=== PATIENT | male | born 1960 | race Caucasian/White ===

== ENCOUNTER 2019-03-17 23:14 | Emergency (ER) | payer SELFPAY ==
[~2019-03-17] VITALS: Ht 170.2 cm; Wt 75.7 kg
[2019-03-17 23:21] VITALS: Ht 170.2 cm; Wt 75.7 kg
[2019-03-18 01:53] VITALS: BP 105/66
== END 2019-03-18 01:53 | disposition home or self-care (01) ==
LOC: ED 23:14
DX: S93.602A Unspecified sprain of left foot, initial encounter (principal); X58.XXXA Exposure to other specified factors, initial encounter; Y93.67 Activity, basketball; Y92.89 Other specified places as the place of occurrence of the external cause; Y99.8 Other external cause status
CPT/HCPCS: Q0092